=== PATIENT | male | born 1955 | race Caucasian/White ===

== ENCOUNTER → 2017-01-07 | Day surgery (SDC) | payer BC ==
[2016-12-18 08:04] VITALS: Ht 188 cm; Wt 102.3 kg
[2016-12-18 15:43] LABS: BASO % 0.6 %; BASO ABS # 0.04 K/uL (0-0.2); COMPLETE YES; EOS % 4.1 %; HEMATOCRIT 44.4 % (42-52); IG% 0.2 %; LYMPH % 20.7 %; LYMPH ABS # 1.38 K/uL (1.2-3.4); MEAN CELL VOLUME 89.9 fL (80-100); MEAN CORPUSCULAR HEMOGLOBIN 30.6 pg (25-34); MEAN PLATELET VOLUME 11.5 fL (7.4-10.4); MONO % 7.4 %; PLATELET COUNT 196 K/uL (130-400); RED BLOOD COUNT 4.94 M/uL (4.7-6.1); WHITE BLOOD COUNT 6.66 K/uL (4.8-10.8)
[2016-12-18 16:02] LABS: CALCIUM 8.9 mg/dl (8.5-10.1); CREATININE 1.47 mg/dl (0.60-1.40); POTASSIUM 4.1 mmol/L (3.5-5.1)
[~2017-01-07] VITALS: Ht 188 cm; Wt 102.3 kg
[~2017-01-07] MED LIST: ATROPINE SULFATE 0.1 MG/ML 5ML SYR IV PRN; BUPIVACAINE/EPINEPHRINE 0.25% 1:200,000 30 ML VIAL ONE; BUPIVACAINE/EPINEPHRINE 0.5% MPF 1:200,000 30 ML VIAL ONE; CARV6.252 PO; CLINDAMYCIN PHOS 150 MG/ML 2 ML VIAL IV SCH; DEXAMETHASONE SOD INJ 4 MG/ML VIAL ONE; DIFL500T PO; EpHEDrine SULFATE INJ 50 MG/ML AMP IV PRN; EpINEphrine INJ 1MG/ML AMP 1 MG/ML AMP ONE; FENTANYL CITRATE INJ 50 MCG/1 ML 2 ML VIAL IV PRN; FENTANYL CITRATE INJ 50 MCG/1 ML 2 ML VIAL ONE; GLIP2.5T11 PO; GLUC1TAB94 PO; KETO10TA PO; KETOROLAC TROMETHAMINE 30 MG/ML VIAL IV. PRN; KRIL1CAP3 PO; LACTATED RINGER'S 1000ML 1,000 ML IV SCH; LEVO125T5 PO; LIDOCAINE HCL 2% 2 ML VIAL (20MG/ML) ONE; LISI40TA PO; METF1TAB53 PO; MIDAZOLAM HCL 1 MG/ML 2ML VIAL ONE; MULT-506 PO; ONDANSETRON INJ 2 MG/ML 2 ML VIAL IV PRN; ONDANSETRON INJ 2 MG/ML 2 ML VIAL ONE; OXYC-57 PO; OXYCODONE/ACETAMINOPHEN 5-325 TAB PO PRN; POTA99TA PO; PROB1TAB16 PO; PROPOFOL IV EMULSION 10 MG/ML 20 ML VIAL IV ONE; SODIUM CHLORIDE 0.9% 1000ML 1,000 ML IV SCH; TADA5TAB11 PO; TRIA37.5 PO
--- NOTE | 2017-01-07 07:00 | History & Physical Bridge - [place] ---
H&P Re-Evaluation Bridge Note: I have examined the patient, reviewed the History & Physical and in the interval since the performance of the History & Physical I have noted the following changes of clinical significance: No changes noted
--- NOTE | 2017-01-07 08:58 | Discharge Instructions-SurgCtr ---
Discharge Instructions Date of Service Jan 07, 2017. Visit Reason for Visit: Lt Sholdr Subluxation Long Head Of Biceps D46.119a Discharge Discharge Diagnosis / Problem: SAME ABOVE Discharge Goals Goal(s): Decrease discomfort, Improve function Medications Stopped Medications Name(s): METFORMIN- LAST DOSE 01/04 Restart Stopped Medication(s): SAME ABOVE Activity Recommendations Activity Limitations: as noted below Lifting Limitations: no more than 5 pounds Shower/Bathe: tomorrow Anesthesia . Post Anesthesia Instructions: If you have had General Anesthesia or IV Sedation: * Do not drive today. * Resume driving when surgeon permits. * Do not make important decisions or sign legal documents today. * Call surgeon for: 1. Temperature elevations greater than 101 degrees F. 2. Uncontrollable pain. 3. Excessive bleeding. 4. Persistent nausea and vomiting. 5. Medication intolerance (nausea, vomiting or rash). * For nausea and vomiting use only clear liquids such as: tea, soda, bouillon until nausea subsides, then gradually increase diet as tolerated. * If you have any concerns or questions, call your surgeon's office. If physician is unavailable and it is an emergency, call 911 or go to the nearest emergency room. . Instructions / Follow-Up Instructions / Follow-Up MEDICATIONS: * Resume previous medications unless instructed otherwise by your surgeon. * Always take pain medication on a full stomach or with food to avoid upset stomach. * Do not drink alcohol or drive while taking narcotics. * Ibuprofen or Tylenol may be taken if narcotic not needed. SPECIAL CARE INSTRUCTIONS: __ None _X_ Keep extremity elevated and iced x 48 hours; apply ice 20-30 minutes 8-10 times/day. May remove at night. _X_ Sling (WEAR FOR COMFORT ONLY) __24 hrs/day __ Remove at night __ Shoulder Immobilizer __ 24 hrs/day __ Remove at night _X_ Dressing __ Maintain until seen in office, may shower with plastic over site _X_ Remove dressings in 24-48 hours and then may shower _X_ Cover incisions with band-aids after showering _X_ Do not remove steri-strips (THEY ARE IN THE ARM-PIT AND MAY FALL OFF ON THEIR OWN) Call physician if chills or temperature rises above 102 degrees or pain unrelieved by prescribed pain medications at . . Diet Recommendations Home Diet: no limitations Fluid Restriction: None Procedures Procedures Performed: Left Shoulder Arthroscopy, Acromioplasty, Open Bicep Tenodesis Pending Studies Studies pending at discharge: no Work Instructions Return To Work: after follow-up Lifting Limitations: NO LIFTING MORE THAN 5 POUNDS WITH LEFT ARM Medical Emergencies . Who to Call and When: Medical Emergencies: If at any time you feel your situation is an emergency, please call 911 immediately. . Non-Emergent Contact Non-Emergency issues call your: Primary Care Provider Call Non-Emergent contact if: you have a fever, temperature is above 101.5 . . "Provider Documentation" section prepared by Miko Marroquin. .
[2017-01-07 09:40] VITALS: TEMP 36.4
--- NOTE | 2017-01-07 09:53 | Anesthesia Progress Nt - [facility] ---
Anesthesia Post Op Note Date & Time Jan 07, 2017 at 09:53 Vital Signs Pain Intensity: 1 Vital Signs Past 12 Hours Date Time Temp Pulse Resp B/P (MAP) Pulse Ox O2 Delivery O2 Flow Rate FiO2 01/07/17 09:40 36.4 62 16 189/99 (129) 97 Room Air 01/07/17 09:21 62 13 01/07/17 09:21 62 13 95 01/07/17 09:20 162/106 01/07/17 09:16 62 20 01/07/17 09:16 62 20 96 01/07/17 09:15 178/108 01/07/17 09:15 36.6 66 16 178/108 96 Room Air 01/07/17 09:11 61 19 100 01/07/17 09:11 61 19 01/07/17 09:10 59 11 167/99 100 01/07/17 09:10 59 11 01/07/17 09:06 165/97 01/07/17 09:05 60 19 01/07/17 09:05 19 01/07/17 09:00 61 20 183/112 96 01/07/17 09:00 62 20 01/07/17 08:59 179/112 01/07/17 08:57 36.8 63 16 198/126 97 Mask 01/07/17 08:57 198/126 01/07/17 07:44 0 01/07/17 07:40 185/127 01/07/17 07:39 63 01/07/17 07:39 63 15 100 01/07/17 07:38 64 01/07/17 07:38 64 16 100 01/07/17 07:37 65 01/07/17 07:37 64 11 100 01/07/17 07:36 194/142 01/07/17 07:34 213/122 01/07/17 07:32 63 0 98 01/07/17 07:32 61 01/07/17 07:27 63 0 97 01/07/17 07:27 64 01/07/17 07:22 66 0 98 01/07/17 07:22 66 01/07/17 07:17 0 01/07/17 06:34 36.4 67 18 205/117 (146) 99 Room Air 119/115 (116) Notes Mental Status: alert / awake / arousable, participated in evaluation Pt Amnestic to Procedure: Yes Nausea / Vomiting: adequately controlled Pain: adequately controlled Airway Patency, RR, SpO2: stable & adequate BP & HR: stable & adequate Hydration State: stable & adequate Anesthetic Complications: no major complications apparent Block working well in pacu
[2017-01-07 09:58] VITALS: BP 157/95; PULSE 59; O2SAT 97
--- NOTE | 2017-01-07 15:38 | [facility] Post Operative Brief Note ---
Immediate Operative Summary Operative Date Jan 07, 2017. Pre-Operative Diagnosis Left shoulder Subluxation, Impingement, biceps tendinopathy Post-Operative Diagnosis same as preop Procedure(s) Performed Left Shoulder Arthroscopy, Acromioplasty, Open Bicep Tenodesis Surgeon Dr. Ratliff Laundry Presser Surgeon(s) Francisco Javier Marroquin PA-C Estimated Blood Loss 5ml Findings as above Specimens none per surgeon Complication(s) None Disposition Recovery Room / PACU
--- NOTE | 2017-01-07 19:14 | OPERATIVE REPORT ---
DATE OF OPERATION: 01/07/2017 PREOPERATIVE DIAGNOSIS: Biceps tendinopathy of the left shoulder. POSTOPERATIVE DIAGNOSIS: Same. PROCEDURE: Left shoulder diagnostic arthroscopy with limited debridement, acromioplasty, open subpectoral biceps tenodesis and coplaning of the distal clavicle. SURGEON: Cody Ratliff DO. GLOVE MACHINE OPERATOR: Miko Marroquin PA-C, whose assistance was necessary for positioning the arm and helping with instrumentation. ANESTHESIA: Sedation with a left interscalene nerve block. COMPLICATIONS: None. CONDITION: Stable to PACU. INDICATIONS: Max is a pleasant 61-year-old male who is an avid golfer. He presented to my office with chronic left shoulder pain. He initially hurt his shoulder while hitting a ball out of the sand. MRI and clinical examination were diagnostic for biceps tendinopathy and slightly medially subluxated biceps tendon of the left shoulder. He has also signs of external impingement. He elected to undergo arthroscopy. DESCRIPTION OF PROCEDURE: On 01/07/2017, he arrived at [facility] for the above procedure. He was seen in the preoperative holding area and the operative extremity was identified and signed. He was given a preoperative antibiotic and a left interscalene nerve block. He was taken back to the operating room, laid on the table in supine position and put under basic sedation. The left shoulder was then prepped and draped in sterile fashion. Time-out was done and the patient and operative extremity was properly identified. A scope was introduced in the posterior portal. Diagnostic arthroscopy showed no cartilage damage to the humeral head or the glenoid. There was significant fraying of the biceps tendon. It was slightly medially subluxated. There was no tearing of the subscapularis. The supraspinatus, infraspinatus and teres minor were intact. An anterior portal was made. A shaver was used to do a limited debridement of the intraarticular structures and the biceps tendon was arthroscopically tenotomized. The scope was then put into the subacromial space. A lateral portal was made. A shaver was used to do a complete subacromial and subdeltoid bursectomy. An ablator was used to tease the coracoacromial ligament off the undersurface of the acromion and a 5-0 frank was used to complete an acromioplasty of a Bigliani type 3 acromion. A shaver was used to remove any excess debris. There was also large osteophytes hanging off the undersurface of the clavicle. This was impinging upon the supraspinatus outlet. A 5-0 frank was then used to coplane the undersurface of the clavicle. This opened up the supraspinatus outlet. Final subacromial pictures were taken. I saw no additional pathology. Arthroscopic instruments were removed from the shoulder. Attention was turned to an open biceps tenodesis. A small incision was made over the inferior border of the pec major. Dissection was taken down through the fascia and the long head of the biceps tendon was delivered out of the wound. The tendon was then whip stitched at the anticipated level of tenodesis and the remainder of the tendon was discarded. A 6 mm hole was drilled in the bicipital groove and the biceps tendon was tenodesed with an Arthrex biceps button that was passed through the posterior cortex and a tension slide technique to deliver the tendon into the 6 mm hole. This gave good fixation. The wound was then irrigated and closed with 3-0 Vicryl and running 3-0 Monocryl. Steri-strips were placed. Portal sites were closed with 3-0 nylon. He was then placed in a soft dressing and a regular arm sling. He was then extubated, transferred to a litter and taken to the postanesthesia care unit in stable condition. He tolerated the procedure well. I attest to the content of the Intraoperative Record and any orders documented therein. Any exception s are noted below.
== END | disposition home or self-care (01) ==
LOC: X.SURG 06:21
PROVIDERS: ATTEND Orthopaedic Surgery
DX: S43.002A Unspecified subluxation of left shoulder joint, initial encounter (principal); S46.112A Strain of muscle, fascia and tendon of long head of biceps, left arm, initial encounter; X50.9XXA Other and unspecified overexertion or strenuous movements or postures, initial encounter; Y93.53 Activity, golf; Y92.89 Other specified places as the place of occurrence of the external cause; I10 Essential (primary) hypertension